=== PATIENT | female | born 1940 | race Caucasian/White ===

== ENCOUNTER → 2020-10-21 | Outpatient (CLI) | payer MEDICARE, OTHER ==
--- NOTE | 2020-10-27 11:02 | RAD ---
DATE: 10/21/2020 11:27 AM EXAM: MAMMO SHAHID SCREENING BILATERAL HISTORY: Screening COMPARISON: 02/23/2019, 02/19/2018 Bilateral CC and MLO views of the breasts were performed. Bilateral breast tomosynthesis was performed in CC and MLO projections. This study was interpreted with the benefit of Computerized Aided Detection (CAD). FINDINGS: Breast Density: HETERO The breast parenchyma Is heterogeneously dense, which could reduce sensitivity of mammography. Breast parenchyma level C No suspicious masses, microcalcifications or architectural distortion is present to suggest malignancy in either breast. The visualized axillae are unremarkable. IMPRESSION: No mammographic evidence of malignancy. BI-RADS CATEGORY: 1 NEGATIVE RECOMMENDED FOLLOW-UP: 12M 12 MONTH FOLLOW-UP Annual screening mammography is recommended, unless clinically indicated sooner based on symptoms or change in physical exam. PQRS compliance statement: Patient information was entered into a reminder system with a target due date for the next mammogram. Mammography is a sensitive method for finding small breast cancers, but it does not detect them all and is not a substitute for careful clinical examination. A negative mammogram does not negate a clinically suspicious finding and should not result in delay in biopsying a clinically suspicious abnormality. "Our facility is accredited by the [employer] Mammography Program."
== END ==
LOC: MAMMO 10:36
PROVIDERS: ATTEND Family Medicine
DX: Z12.31 Encounter for screening mammogram for malignant neoplasm of breast (principal)
CPT/HCPCS: 77063; 77067

== ENCOUNTER → 2021-03-01 | Outpatient (CLI) | payer MEDICARE, OTHER ==
--- NOTE | 2021-03-01 10:00 | RAD ---
PROCEDURE: US BREAST RT, MG DIGITAL UNILAT DIAGNOSTIC MAMMO WITH SHAHID HISTORY: The patient is 80 years old and is seen for Reason: RT BREAST LUMP / Spl. Instructions: / H istory: . COMPARISON: October 21, 2020 TECHNIQUE: CC and MLO views of right breast were obtained as well as spot compression view and ML vie w. Images were processed by the [employer] computer-aided detection system. Right breast targeted ultrasound was also performed. DENSITY: The breast parenchyma is extremely dense, which could obscure a lesion on mammography. FINDINGS: Right mammogram: Asymmetry within the right superior breast on MLO view which is less apparent on spo t compression view. Benign-appearing calcifications. Right ultrasound: Small hypoechoic lesion within the right breast 8:00 position within the region the patient's pain measures 0.3 x 0.2 cm. No suspicious posterior shadowing. Dense fibroglandular tissue . Several axillary lymph nodes largest measures 1.8 x 0.9 x 0.8 cm. Normal fatty hilum. IMPRESSION: 1. Hypoechoic right breast lesion, may represent complicated cyst. Recommend 6 month follow-up. 2. Asymmetry within the right breast less apparent on spot compression view, may represent overlappi ng fibroglandular tissue. Recommend 6 month follow-up right breast mammogram and ultrasound. BI-RADS category 3 Probably benign Our clinic nurse has been instructed to assist with communicating findings and recommendations to the patient's referring physician and in scheduling follow-up. Patient entered into a reminder system for annual screening mammogram. Electronically signed by: Abdi Bhatt DO (03/01/2021 9:57 AM) [id number]
== END ==
LOC: MAMMO 08:56
PROVIDERS: ATTEND Family Medicine
DX: N64.4 Mastodynia (principal)
CPT/HCPCS: 76641; 77065; G0279; 77061

== ENCOUNTER → 2021-08-31 | Outpatient (CLI) | payer MEDICARE, OTHER ==
--- NOTE | 2021-08-31 14:13 | RAD ---
PROCEDURE: MG DIGITAL UNILAT DIAGNOSTIC MAMMO WITH SHAHID, US BREAST LTD RT HISTORY: The patient is 81 years old and is seen for Reason: 6 MO FU / MENPAUSAL / Spl. Instructions : / History: . COMPARISON: October 21, 2020 and March 01, 2021 TECHNIQUE: Right breast mammogram CC and MLO view. Tomography was performed. Targeted right breast ul trasound. DENSITY: The breast parenchyma is extremely dense, which could obscure a lesion on mammography. FINDINGS: Right mammogram: Benign-appearing calcifications, unchanged. No new suspicious microcalcifications, m ass or architectural distortion. Right ultrasound: Unchanged hypoechoic mass within the right breast 8:00 position 2 cm from the nippl e measures 0.3 x 0.3 x 0.2 cm. No suspicious posterior shadowing. Well-circumscribed borders. IMPRESSION: 1. Unchanged hypoechoic lesion within the right breast, most likely complicated cyst. Recommend retu rn to annual screening. Recommend annual screening mammograms per [place] [facility] guidelines. Target date for bilatera l screening mammogram in early 2021. BI-RADS Category 2: Benign. Patient entered into a reminder system for annual screening mammogram. Electronically signed by: Abdi Bhatt DO (08/31/2021 2:11 PM) [id number]
--- NOTE | 2021-08-31 17:29 | RAD ---
DXA BONE DENSITY AXIAL History: Reason: Postmenopausal/ Spl. Instructions: / History: Comparison: None. TECHNIQUE: Dual energy x-ray absorptiometry of the lumbar spine and right hip was performed. T-score of average bone mineral density based was calculated based on standard deviations above or below the expected young adult normal value. Diagnostic definitions were established by the [employer]. FINDINGS: The average bone mineral density associated with L1-L4 is 1.324 g/cm^2, corresponding with a T-score of 1.2. The average total bone mineral density associated with right hip is 0.873 g/cm^2, corresponding with a T-score of -0.7. Right femoral neck T score -1.3 Refer to the worksheets for full detail. IMPRESSION: 1. Osteopenia correlate for right femoral neck measurement. Average bone mineral density yields a T- score between -1.0 and -2.5. Fracture risk is increased. Electronically signed by: Abdi Bhatt DO (08/31/2021 5:27 PM) [id number]
== END ==
LOC: MAMMO 13:08
PROVIDERS: ATTEND Family Medicine
DX: N63.23 Unspecified lump in the left breast, lower outer quadrant (principal); N64.89 Other specified disorders of breast; N64.4 Mastodynia; M85.89 Other specified disorders of bone density and structure, multiple sites; Z78.0 Asymptomatic menopausal state
CPT/HCPCS: 76642; 77065; 77080; G0279; 77061